=== PATIENT | male | born 1960 | race African-American/Black ===

== ENCOUNTER 2017-12-24 18:53 | Emergency (ER) | payer MEDICAID ==
[~2017-12-24] VITALS: Ht 182.9 cm; Wt 210.0 kg
[2017-12-24 18:58] VITALS: BP 119/76
[2017-12-24] MEDS ORDERED: NORCO (19:01)
== END 2017-12-24 20:00 | disposition left against medical advice (07) ==
LOC: ER 19:14
DX: M79.661 Pain in right lower leg (principal); Z53.21 Procedure and treatment not carried out due to patient leaving prior to being seen by health care provider

== ENCOUNTER 2022-08-23 12:38 | Emergency (ER) | payer OTHER, MEDICAID ==
[~2022-08-23] VITALS: Ht 182.9 cm; Wt 137.0 kg
[~2022-08-23 12:38] MED LIST: NORCO
[2022-08-23] MEDS ORDERED: MECLIZINE 25MG TABLET PO ONE (12:45)
[2022-08-23 13:39] LABS: BASOPHILS % 0.3 % (0.0-2.0); EOSINOPHILS % 0.2 % (0.0-5.0); HEMOGLOBIN. 15.7 g/dL (14.0-18.0); LYMPHOCYTES % 14.4 % (20.0-50.0); MEAN CORPUSCULAR HEMOGLOBIN 33.2 pg (28.0-32.0); MEAN CORPUSCULAR VOLUME 97.2 fL (80.0-94.0); MEAN PLATELET VOLUME 6.7 fl (7.4-10.4); MONOCYTES % 3.9 % (2.0-8.0); NEUTROPHILS % 81.2 % (40.0-76.0); PLATELET 217 x1000/uL (130-400); RED BLOOD CELL COUNT 4.73 mill/uL (4.7-6.1); RED CELL DISTRIBUTION WIDTH 14.9 % (11.6-14.6)
[2022-08-23 13:42] LABS: CHLORIDE 100 mEq/L (98-107)
[2022-08-23] MEDS ORDERED: ACETAMINOPHEN 325MG TABLET PO ONE (13:45)
[2022-08-23] MEDS ORDERED: ONDANSETRON HCL 4MG/2ML INJ IV ONE (13:45)
[2022-08-23 18:32] VITALS: BP 160/110
== END 2022-08-23 19:23 | disposition short-term general hospital (02) ==
LOC: ER 12:38 → CANBEDREQ 08-24 09:10
DX: R42 Dizziness and giddiness (principal); E87.1 Hypo-osmolality and hyponatremia; Z20.822 Contact with and (suspected) exposure to COVID-19; I10 Essential (primary) hypertension; Z89.611 Acquired absence of right leg above knee; E11.65 Type 2 diabetes mellitus with hyperglycemia; R74.01 Elevation of levels of liver transaminase levels
CPT/HCPCS: 36415; 70450; 80053; 84484; 85025; 87426; 96374; 99284; C9803; J2405; J8597

== ENCOUNTER 2022-09-28 18:09 | Emergency (ER) | payer OTHER, MEDICAID ==
[~2022-09-28] VITALS: Ht 172.7 cm; Wt 72.0 kg
[2022-09-28 18:13] VITALS: BP 134/72
== END 2022-09-29 01:03 | disposition home or self-care (01) ==
LOC: ER 18:09
DX: R53.1 Weakness (principal); E11.9 Type 2 diabetes mellitus without complications; I10 Essential (primary) hypertension; Z89.511 Acquired absence of right leg below knee
CPT/HCPCS: 99283